=== PATIENT | male | born 1965 | race Two or more races ===

== ENCOUNTER 2022-09-18 04:42 | Emergency (ER) | payer BC ==
[~2022-09-18] VITALS: Ht 170.2 cm; Wt 92.0 kg
[2022-09-18 04:57] VITALS: O2SAT 100
[2022-09-18] MEDS ORDERED: OXYCODONE HCL/ACETAMINOPHEN 5/325MG TABLET PO ONE (05:45)
[2022-09-18] MEDS ORDERED: DEXAMETHASONE 10 MG/ML VIAL IM ONE (05:45)
[2022-09-18] MEDS ORDERED: KETOROLAC 60MG/2ML VIAL IM ONE (05:45)
[2022-09-18 06:01] VITALS: BP 167/107
[2022-09-18] MEDS ORDERED: IBUP-2028 PO (06:09)
[2022-09-18] MEDS ORDERED: OXYC-100 PO ×2 (06:09)
[2022-09-18 06:26] VITALS: PULSE 100; RESP 14; TEMP 98
[2022-09-18] MEDS ORDERED: HYDR-4001 PO (06:26)
== END 2022-09-18 06:28 | disposition home or self-care (01) ==
LOC: ER 04:42
DX: M54.40 Lumbago with sciatica, unspecified side (principal)
CPT/HCPCS: 96372; 99284; J1100; J1885; Z7610